=== PATIENT | female | born 1965 | race Caucasian/White ===

== ENCOUNTER → 2019-01-19 | Outpatient (CLI) | payer OTHER ==
--- NOTE | 2019-01-19 15:43 | REP ---
HIDA SCAN WITH GALLBLADDER EJECTION FRACTION: Following the intravenous administration of 6.6 mCi of technetium-99m mebrofenin, multiple images of the right upper quadrant are performed for 1 hour. Gallbladder is visualized at 55 minutes postinjection. There is biliary to bowel transit at 15 minutes postinjection. There is no scintigraphic evidence of cholecystitis. At the 1 hour [place] 8 ounces of Ensure Enlive is ingested and further imaging performed for 1 hour. Gallbladder activity is measured and the gallbladder ejection fraction is calculated to be 42% which is normal. A normal gallbladder ejection fraction is greater than 35%. IMPRESSION: Normal gallbladder ejection fraction. Electronically Signed by Brenton Otero MD 01/21/2019 10:59 A
== END ==
LOC: M RAD 08:37
PROVIDERS: ATTEND Family Medicine
DX: K80.20 Calculus of gallbladder without cholecystitis without obstruction (principal)
CPT/HCPCS: 78227; A9537; J2805

== ENCOUNTER → 2019-05-19 | Outpatient (CLI) | payer OTHER ==
--- NOTE | 2019-05-19 10:54 | REP ---
Clinical: Lung screening. History smoking. Comparison: None Technique: Axial low-dose noncontrast images from the thoracic inlet to the upper abdomen using lung screening technique. Findings: The lung jackson are well-aerated. Small medial right middle lobe nodular density measures 7 mm and smaller right middle lobe densities cyst suggesting scar measures approximately 5 mm. No consolidation or mass lesion is appreciated. No pleural effusion/reaction or pneumothorax. Tracheobronchial tree is patent. Mediastinum demonstrates mild atherosclerotic changes of the coronary arteries without cardiomegaly. Impression: Lung-RADS category III. Lesion falls in the probably benign category with a 1-2% risk of malignancy. Management recommendations include 6-month low-dose CT reevaluation. Electronically Signed by Kristopher Melendrez MD 05/19/2019 10:45 A
== END ==
LOC: M RAD 09:16
PROVIDERS: ATTEND Family Medicine
DX: Z12.2 Encounter for screening for malignant neoplasm of respiratory organs (principal); F17.210 Nicotine dependence, cigarettes, uncomplicated; R91.8 Other nonspecific abnormal finding of lung field; I25.10 Atherosclerotic heart disease of native coronary artery without angina pectoris

== ENCOUNTER → 2020-06-05 | Outpatient (CLI) | payer OTHER ==
--- NOTE | 2020-06-05 10:18 | REP ---
INDICATION: NICOTINE DEPENDENCE, CIGARETTES, UNCOMPLICATED COMPARISON: 05/19/2019 TECHNIQUE: Axial noncontrast images from the thoracic inlet to the upper abdomen using low-dose lung screening technique (LDCT). FINDINGS: Bilateral lung jackson are well aerated and the previously identified 5 mm and 7 mm densities in the right middle lobe remains stable. No acute consolidation, new nodule or mass lesion. No effusion. No pneumothorax. Tracheobronchial tree is patent. IMPRESSION: Lung-RADS category 2. Stable nodular densities measuring 5 mm and 7 mm. Management recommendations include annual low-dose CT evaluation. <Electronically signed by Kristopher Melendrez > 06/05/20 [id number]
== END ==
LOC: M RAD 09:31
PROVIDERS: ATTEND Family Medicine
DX: F17.210 Nicotine dependence, cigarettes, uncomplicated (principal); Z12.2 Encounter for screening for malignant neoplasm of respiratory organs

== ENCOUNTER → 2022-04-02 | Outpatient (CLI) | payer OTHER | LOC: M CARPUL 13:03 | PROVIDERS: ATTEND Internal Medicine Pulmonary Disease | DX: J43.9 Emphysema, unspecified (principal) ==

== ENCOUNTER → 2022-06-24 | Outpatient (CLI) | payer OTHER | LOC: M RAD 09:35 | PROVIDERS: ATTEND Internal Medicine Pulmonary Disease | DX: Z12.2 Encounter for screening for malignant neoplasm of respiratory organs (principal); F17.218 Nicotine dependence, cigarettes, with other nicotine-induced disorders; R91.8 Other nonspecific abnormal finding of lung field ==

== ENCOUNTER → 2023-07-29 | Outpatient (CLI) | payer OTHER | LOC: M RAD 09:30 | PROVIDERS: ATTEND Internal Medicine Pulmonary Disease | DX: Z12.2 Encounter for screening for malignant neoplasm of respiratory organs (principal); F17.218 Nicotine dependence, cigarettes, with other nicotine-induced disorders ==